=== PATIENT | female | born 1955 | race Caucasian/White ===

== ENCOUNTER 2019-01-29 19:32 | Emergency (ER) | payer OTHER ==
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
[2019-01-29 20:04] VITALS: BP 145/100
[2019-01-29] MEDS ORDERED: MUPIROCIN 2% OINT 1 GM TOP STA (20:35)
[2019-01-29] MEDS ORDERED: cephALEXin 250 MG CAPSULE PO STA (20:35)
[2019-01-29] MEDS ORDERED: SULFAMETH/TRIMETH DS 800/160 MG TABLET PO STA (20:35)
== END 2019-01-29 21:07 | disposition home or self-care (01) ==
LOC: ED 19:32
DX: T24.212A Burn of second degree of left thigh, initial encounter (principal); L03.116 Cellulitis of left lower limb; X19.XXXA Contact with other heat and hot substances, initial encounter; Y93.89 Activity, other specified; Z89.612 Acquired absence of left leg above knee
CPT/HCPCS: 99283; A9270

== ENCOUNTER 2019-12-11 06:49 | Outpatient (CLI) | payer OTHER ==
--- NOTE | 2019-12-11 08:38 | Ultrasound Report ---
Reason: RIGHT EYE TRANSIENT VISUAL LOSS Procedure Date: 12/11/2019 Accession Number: [id number] / [id number] Procedure: US - Carotid Doppler Complete CPT Code: Final Report FULL RESULT: EXAM: BILATERAL CAROTID AND VERTEBRAL ARTERY DUPLEX DOPPLER ULTRASOUND: EXAM DATE: 12/11/2019 08:01 AM CLINICAL HISTORY: Right eye transient visual loss. COMPARISON: None. TECHNIQUE: Grayscale imaging, color Doppler, and duplex spectral Doppler were used to evaluate the carotid and vertebral arteries bilaterally. Static images were obtained. FINDINGS: No significant plaque is identified in the right or left common or internal carotid arteries. Tortuosity of the ICA noted bilaterally. Normal antegrade flow is present in bilateral vertebral arteries. VELOCITIES (cm/s): Right CCA mid: PSV 92 cm/s CCA dist: PSV 94 cm/s ICA prox: PSV 74 cm/s, EDV 38 cm/s ICA mid: PSV 86 cm/s, EDV 37 cm/s ICA dist: PSV 119 cm/s, EDV 33 cm/s ECA: PSV 79 cm/s Vert: PSV 74 cm/s ICA/CCA: 1.26 Left CCA mid: PSV 100 cm/s CCA dist: PSV 82 cm/s ICA prox: PSV 88 cm/s, EDV 35 cm/s ICA mid: PSV 73 cm/s, EDV 36 cm/s ICA dist: PSV 77 cm/s, EDV 34 cm/s ECA: PSV 80 cm/s Vert: PSV 96 cm/s ICA/CCA: 0.88 IMPRESSION: 1. No significant bilateral carotid artery plaquing. 2. In the right carotid artery there are no elevated carotid artery velocities to suggest hemodynamically significant stenosis. 3. In the left carotid artery there are no elevated carotid artery velocities to suggest hemodynamically significant stenosis. 4. Normal antegrade flow is present in bilateral vertebral arteries. Validated velocity measurements with angiographic measurements and velocity criteria are extrapolated from diameter data as defined by the Society of Radiologists in Ultrasound Consensus Conference Radiology 2003; 229;340-346. RADIA
== END 2019-12-11 06:50 | disposition home or self-care (01) ==
LOC: DI 06:49
PROVIDERS: ATTEND Nurse Practitioner Family
DX: Z01.818 Encounter for other preprocedural examination (principal); H53.121 Transient visual loss, right eye
CPT/HCPCS: 93306; 93880

== ENCOUNTER 2020-04-16 09:44 | Outpatient (CLI) | payer OTHER ==
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
== END 2020-04-16 09:45 | disposition home or self-care (01) ==
LOC: DI 09:44
PROVIDERS: ATTEND Physician Assistant
DX: M85.89 Other specified disorders of bone density and structure, multiple sites (principal); Z78.0 Asymptomatic menopausal state
CPT/HCPCS: 77080

== ENCOUNTER 2021-07-01 14:30 | Outpatient (CLI) | payer MEDICARE, OTHER ==
--- NOTE | 2021-07-02 10:28 | Ultrasound Report ---
PROCEDURE: Duplex Lwr Ext Arterial Bilat INDICATIONS: ABOVE KNEE AMPUTATION OF LEFT LOWER EXTREMITY TECHNIQUE: Color and pulse Doppler interrogation was performed of both lower extremity arterial systems, with im age documentation. COMPARISON: None FINDINGS: Right lower extremity: Common femoral artery: 102.5 cm/sec, with triphasic flow. Deep femoral artery: 54.7 cm/sec, with triphasic flow. Proximal superficial femoral artery: 94.5 cm/sec, with triphasic flow. Mid superficial femoral artery: 101.1 cm/sec, with triphasic flow. Distal superficial femoral artery: 74.0 cm/sec, with triphasic flow. Popliteal artery: 54.2 cm/sec, with triphasic flow. Posterior tibial artery: 35.4 cm/sec, with triphasic flow. Anterior tibial artery/dorsalis pedis: 87.5/86.0 cm/sec, with triphasic flow. Haney-scale imaging description: No significant stenosis. Left lower extremity: Common femoral artery: 90 cm/sec, with triphasic flow. Deep femoral artery: 56.5 cm/sec, with biphasic flow. Proximal superficial femoral artery: 20.7 cm/sec, with biphasic flow. Mid superficial femoral artery: 19.2 cm/sec, with monophasic flow. Haney-scale imaging description: Atherosclerosis noted within the femoral artery. IMPRESSION: No significant stenosis identified. Monophasic waveforms within the superficial femoral arteries on t he left likely due to amputation. There is however atherosclerotic plaque noted throughout the superf icial femoral artery. Reviewed by: Rogers Treadwell DO on 07/02/2021 9:26 AM SIL Approved by: Rogers Treadwell DO on 07/02/2021 9:26 AM SIL Station ID: [id number]
== END 2021-07-01 14:31 | disposition home or self-care (01) ==
LOC: DI 14:30
PROVIDERS: ATTEND Physical Medicine & Rehabilitation
DX: Z89.612 Acquired absence of left leg above knee (principal)
CPT/HCPCS: 93925